=== PATIENT | female | born 1955 | race Caucasian/White ===

== ENCOUNTER 2025-03-22 09:13 | Day surgery (SDC) | payer MEDICARE, SELFPAY ==
--- OUTSIDE RECORDS SUMMARY | 2025-03-10 02:45 | XMS_ITS | Patient Health Record ---
Author Organization [facility] Address [address] [place] [address] Care Team Providers Care Chemical Maker Name Role Phone Lauro Dudley MD Primary Care Provider Gerard Jarvis Jr Unavailable Allergies Allergen (clinical drug ingredient) Drug/Non Drug Allergy documented on EMR Reaction Allergy Type Onset Date Status acetaminophen / oxycodone Percocet rash Drug Allergy Active codeine Codeine rash Drug Allergy Active Reason For Referral No Information Medications Medication SIG (Take, Route, Frequency, Duration) Notes Start Date End Date Status Simvastatin 40 MG Tablet 1 tablet in the evening Orally Once a day; Duration: 30 day(s) 01/24/2025 Active Levothyroxine Sodium 125 MCG Tablet 1 tablet in the morning on an empty stomach Orally Once a day; Duration: 30 day(s) 01/24/2025 Active Vitamin D-3 25 MCG (1000 UT) Capsule 1 capsule Orally Once a day; Duration: 30 day(s) 01/24/2025 Active Immunizations Vaccine Route Administration Date Status Comme nts Influenza Unknown 01/20/2025 Administered Social History Tobacco Use: Social History Observation Description Date Details (start date - stop date) Never Smoker NA - NA Social History Drug/Alcohol: Social Info Question Answer Notes AUDIT-C (Standard) Did you have a drink containing alcohol in the past year? Yes How often did you have a drink containing alcohol in the past year? Monthly or less (1 point) How many drinks did you have on a typical day when you were drinking in the past year? 1 or 2 drinks (0 point) How often did you have six or more drinks on one occasion in the past year? Never (0 point) Points 1 Interpretation Negative Tobacco Use: Social Info Question Answer Notes Tobacco Control (Standard) Tobacco use: Nonsmoker Additional Details Category Social Info Options Details Miscellaneous: Marital status: Occupation: RN Problems Problem Type SNOMED Code ICD Code Onset Dates Problem Status W/U Status Risk Notes Problem Screening for malignant neoplasm of colon (172135830) Encounter for screening for malignant neoplasm of colon (Z12.11) Active confirmed Vital Signs Temperature 98.6 degrees Fahrenheit 01/24/2025 Blood pressure diastolic 01 mm Hg 01/24/2025 Height 65 in 01/24/2025 Blood pressure systolic 001 mm Hg 01/24/2025 Weight 193 lbs 01/24/2025 BMI 32.11 kg/m2 01/24/2025 Encounters Encounter Location Date Provider Diagnosis [facility] [address] [place] [id number] 01/24/2025 Gerard Lantigua Jr Encounter for screening for malignant neoplasm of colon Z12.11 [facility] [address] [facility] [address] [place] [phone] 01/17/2025 Gerard Lantigua Jr Assessments Encounter Date Diagnosis (ICD Code) Assessment Notes Treatment Notes Treatment Clinical Notes Section Notes 01/24/2025 Encounter for screening for malignant neoplasm of colon (ICD-10 - Z12.11) We discussed colonoscopy today. We discussed risks and benefits of the procedure today. She understands these and agrees to proceed. This will be scheduled at her convenience. Plan Of Treatment Future Test Test Name Order Date COLONOSCOPY 01/24/2025 Next Appt Details Provider Name:Gerard beasley Jr, 03/22/2025 11:50:00 AM, [address] [place] [address] , [place], [place], [id number], Insurance Providers Payer Name Payer Address Payer Phone Subscriber Number Group Number Insured Name Patient Relationship to Insured Coverage Start Date Coverage End Date MEDICARE [place] [address] [place] [address] [phone] [id number] ERASTO KEYES Self - patient is the insured 2 [employer] ATTN CLAIMS [address] [place] [phone] [id number] TRITES, ERASTO Self - patient is the insured Medical (General) History Medical History History ICD Code DCIS left breast, 2020 Surgical History Surgery Date(Month/Year) umbilical hernia repair 1985 c sections 79,83,86 left breast lumpectomy 2024
[2025-03-16 12:58] VITALS: BMI 32.1
--- NOTE | 2025-03-16 14:07 | HO.ANESPROP2 ---
Documented by User: Makeda Mckee NP 03/16/25 14:07 HPI - Anesthesia Eval Consult details Narrative: 70yo F for Colonoscopy PMFSH Past Medical History Medical History Hypothyroid Elevated cholesterol DCIS (ductal carcinoma in situ) of breast Surgical History Surgical History Hx of tonsillectomy History of lumpectomy of right breast H/O colonoscopy Hx of umbilical hernia repair History of History of lumpectomy of left breast Social History Social History Patient Tobacco Use Status: Former Tobacco user Tobacco use type: Cigarette Use of substances other than those prescribed or required for medical reasons: No Are you DNR?: No Advance Directives: No Advance Directives Information Provided: Yes Patient : No : No Meds Allergies Allergy/AdvReac Type Severity Reaction Status Date / Time codeine Allergy Intermediate Rash Verified 03/16/25 12:56 oxycodone Allergy Intermediate Hives Verified 03/22/25 10:43 Home Medications ?Medication ?Instructions ?Recorded ?Confirmed ?Last Taken ?Type cholecalciferol (vitamin D3) 25 25 mcg PO DAILY 03/16/25 03/16/25 Unknown History mcg (1,000 unit) capsule (Vitamin D3) hydrochlorothiazide 12.5 mg tablet 12.5 mg PO DAILY 03/16/25 03/16/25 Unknown History levothyroxine 125 mcg tablet 125 mcg PO DAILY 03/16/25 03/16/25 03/22/25 History rizatriptan 10 mg disintegrating 10 mg PO DAILY PRN Migraine 03/16/25 03/16/25 Unknown History tablet Headache simvastatin 40 mg tablet 40 mg PO BEDTIME 03/16/25 03/16/25 Unknown History Exam Height,Weight and Vital Signs: Height 5 ft 5 in Weight 87.543 kg Assessment and Plan Assessment Anesthesia Assessment: Chart Reviewed Documented by User: Skyler Mckeon MD 03/22/25 11:21 ON LICENSE OF [facility] Past Medical History Medical History Hypothyroid Elevated cholesterol DCIS (ductal carcinoma in situ) of breast Functional capacity: independent ambulation Family History Family history of problems with anesthesia: No Surgical History Surgical History Hx of tonsillectomy History of lumpectomy of right breast H/O colonoscopy Hx of umbilical hernia repair History of History of lumpectomy of left breast History of Problems with Anesthesia: No Social History Social History Patient Tobacco Use Status: Former Tobacco user Tobacco use type: Cigarette Use of substances other than those prescribed or required for medical reasons: No Are you DNR?: No Advance Directives: No Advance Directives Information Provided: Yes Patient : No : No Meds Allergies Allergy/AdvReac Type Severity Reaction Status Date / Time codeine Allergy Intermediate Rash Verified 03/16/25 12:56 oxycodone Allergy Intermediate Hives Verified 03/22/25 10:43 Home Medications ?Medication ?Instructions ?Recorded ?Confirmed ?Last Taken ?Type cholecalciferol (vitamin D3) 25 25 mcg PO DAILY 03/16/25 03/16/25 Unknown History mcg (1,000 unit) capsule (Vitamin D3) hydrochlorothiazide 12.5 mg tablet 12.5 mg PO DAILY 03/16/25 03/16/25 Unknown History levothyroxine 125 mcg tablet 125 mcg PO DAILY 03/16/25 03/16/25 03/22/25 History rizatriptan 10 mg disintegrating 10 mg PO DAILY PRN Migraine 03/16/25 03/16/25 Unknown History tablet Headache simvastatin 40 mg tablet 40 mg PO BEDTIME 03/16/25 03/16/25 Unknown History Exam Exam Date and Time: 03/22/25 Airway Mallampati Class: II TM Dist: >3cm Neck ROM: Full Heart: rrr Lungs: ctab vesicular Assessment and Plan Assessment Anesthesia Assessment: Anesthesia Plan Discussed Final Anesthetic Review Family History of Problems with Anesthesia: No History of Problems with Anesthesia: No NPO: Yes ASA Class: II Final Preanesthetic Review: No Changes in Pt Med Stat, Meds/Allgs Chart Reviewed, Consent Obtained/Reviewed and Anes Risks/Benef Reviewed Patient Risk: Low Procedure Risk: Low Anesthetic Plan Anesthetic Plan: MAC: Disposition: Standard PACU
[2025-03-22 10:36] VITALS: BMI 32.7
[2025-03-22 10:50] VITALS: BP 167/96; PULSE 79; RESP 16; TEMP 36.6; O2SAT 97
[2025-03-22] MEDS: Lactated Ringers 1,000 ML 100 ML IVCONT (11:05)
--- NOTE | 2025-03-22 11:21 | MHC.SHP ---
Pre-Procedural Eval Section A - 24 Hr Update-Section A only Date of Service: 03/22/25 Section B - Complete if H&P > 30 days Chief Complaint: screening Details of Present Illness: see H&P no changes Relevant Family History (Specify if Yes): No Relevant Social History: None Present Medications: see Short Stay Collaborative assessment Medical History: No relevant PMH History of Previous Operations: No relevant previous surgery Allergies: Allergies Allergy/AdvReac Type Severity Reaction Status Date / Time codeine Allergy Intermediate Rash Verified 03/16/25 12:56 oxycodone Allergy Intermediate Hives Verified 03/22/25 10:43 Review of Systems Sugical H&P ROS: Negative: Constitution, Cardiovascular, Respiratory, Neurological, Psychiatric, Hem-Onc, Allergic/Immunologic, Gastrointestinal, Genitourinary, Musculoskeletal, Integumentary, Endocrine and Eyes/Ears/Nose/Throat Exam Surgical H&P Exam: Normal: HEENT, Normal: Heart, Normal: Lungs, Normal: Extremities, Normal: Abdomen, Normal: Skin and Normal: Neurological Plan Diagnosis/Plan: Unchanged I have reviewed the history and physical and performed a pertinent physical examination on my patient. No changes have occurred unless specified. Time Spent With Patient Time: Total time managing care of this patient today ____ minutes.
[2025-03-22 12:45] VITALS: BP 108/45; PULSE 83; RESP 10; TEMP 36.1; O2SAT 92
[2025-03-22 13:00] VITALS: BP 113/56; PULSE 75; RESP 18; TEMP 36.4; O2SAT 97
--- NOTE | 2025-03-22 20:56 | OP_ITS ---
DATE OF SERVICE: 03/22/2025 SURGEON: Gerard Lantigua MD INDICATIONS: Colon cancer screening. PREOPERATIVE DIAGNOSIS: POSTOPERATIVE DIAGNOSIS: PROCEDURE PERFORMED: Colonoscopy to the cecum. ESTIMATED BLOOD LOSS: COMPLICATIONS: ANESTHESIA: Monitored anesthesia care. ASSISTANTS: SPECIMENS: DESCRIPTION OF PROCEDURE: History and physical performed. The risks and benefits of the procedure were explained to the patient, and informed consent was obtained. The patient was placed in the left lateral decubitus position. A digital rectal exam was performed and was found to be normal. The Olympus pediatric video colonoscope was introduced into the rectum and advanced to the cecum with the assistance of abdominal wall pressure. Examination was performed. The scope was removed. She tolerated the procedure well and was taken to Recovery in stable condition. FINDINGS: The terminal ileum was not examined. Views of the cecum were somewhat limited by some retained liquid stool, which was washed and suctioned as best possible. The remainder of the colonic mucosa was within normal limits without evidence of masses, ulcers, or polyps. The quality of the prep was good. Retroflexed examination was normal. IMPRESSION: Normal colonoscopy. RECOMMENDATION: 1. Followup as needed. 2. Repeat colonoscopy could be considered in 10 years for average-risk individuals. This is optional based on the patient's age. MD HAILEE De La O/MODL / [id number]
== END 2025-03-22 13:38 | disposition home or self-care (01) ==
PROVIDERS: PCP Internal Medicine; Visit Provider Internal Medicine Gastroenterology
PROC: 0DJD8ZZ Inspection of Lower Intestinal Tract, Via Natural or Artificial Opening Endoscopic (ICD-10-PCS; CPT 45378; principal; 2025-03-22 10:50)
DX: Z12.11 Encounter for screening for malignant neoplasm of colon (principal)
CPT/HCPCS: G0121; J2003; J2250; J2405; J2704; J3010